=== PATIENT | female | born 1930 | race Caucasian/White ===

== ENCOUNTER 2016-07-11 08:14 | Emergency (ER) | payer MEDICARE ==
[2016-07-11 08:31] VITALS: BP 144/75
--- NOTE | 2016-07-11 08:42 | UC ---
Hand/Wrist HPI - HPI Summary HPI Summary: 85 YO FEMALE WITH THE ONSET OF RIGHT WRIST PAIN X 2 DAYS NO INJURY A FEW DAYS PRIOR TO PAIN SHE WAS LIFTING BAGS OF GROCERIES - History Of Current Complaint Chief Complaint: UCUpperExtremity Stated Complaint: WRIST INJURY Time Seen by Provider: 07/11/16 08:36 Hx Obtained From: Patient Onset/Duration: Gradual Onset, Lasting Days Severity Initially: Moderate Severity Currently: Moderate Pain Intensity: 4 Pain Scale Used: 0-10 Numeric Character Of Pain: Dull, Aching Aggravating Factor(s): Movement Alleviating: Rest Associated Signs And Symptoms: Positive: Swelling Related History: Dominant Hand Right - Allergies/Home Medications Allergies/Adverse Reactions: Allergies Allergy/AdvReac Type Severity Reaction Status Date / Time No Known Allergies Allergy Verified 07/11/16 08:26 Home Medications: Home Medications Areds 2 07/11/16 [History] Levothyroxine TAB* [Synthroid 25 MCG TAB*] 1 tab PO DAILY 07/11/16 [History Confirmed 07/11/16] Metoprolol Tartrate TAB* [Lopressor TAB*] 07/11/16 [History] PMH/Surg Hx/FS Hx/Imm Hx Previously Healthy: Yes Endocrine History Of: Reports: Thyroid Disease - HYPOTHYROIDISM Denies: Diabetes Cardiovascular History Of: Reports: Hypertension Denies: Cardiac Disorders, Pacemaker/ICD Respiratory History Of: Denies: COPD, Asthma GI/ History Of: Denies: Ulcer, Renal Disease - Surgical History Surgical History: Yes Surgery Procedure, Year, and Place: 1978 COMPLETE HYSTERECTOMY [place]. BILATERAL CATARACTS - Family History Known Family History: Positive: Hypertension - Social History Alcohol Use: Daily Alcohol Amount: One glass daily Substance Use Type: None Smoking Status (MU): Never Smoked Tobacco Have You Smoked in the Last Year: No Review of Systems Constitutional: Negative Skin: Negative Eyes: Negative ENT: Negative Respiratory: Negative Cardiovascular: Negative Gastrointestinal: Negative Genitourinary: Negative Motor: Negative Neurovascular: Negative Musculoskeletal: Arthralgia Neurological: Negative Psychological: Negative All Other Systems Reviewed And Are Negative: Yes Physical Exam Triage Information Reviewed: Yes Appearance: Well-Appearing, No Pain Distress, Well-Nourished Vital Signs: Initial Vital Signs Temp 97.4 F 07/11/16 08:29 Pulse 85 07/11/16 08:29 Resp 16 07/11/16 08:29 BP 144/75 07/11/16 08:29 Pulse Ox 99 07/11/16 08:29 Eyes: Positive: Conjunctiva Clear ENT: Positive: Hearing grossly normal. Negative: Nasal congestion, Nasal drainage, Trismus, Muffled/hoarse voice Neck: Positive: Supple, Nontender Respiratory: Positive: Lungs clear, Normal breath sounds, No respiratory distress, No accessory muscle use Cardiovascular: Positive: RRR, No Murmur Musculoskeletal: Positive: ROM Intact, Edema @, Other: - SEE IMAGE Neurological: Positive: Alert Psychological Exam: Normal Skin Exam: Normal Hand/Wrist Course/Dx - Differential Dx/Diagnosis Provider Diagnoses: RIGHT WRIST TENDONITS/ARTHRITIS Discharge - Discharge Plan Condition: Stable Disposition: HOME Prescriptions: Meloxicam [Mobic] 7.5 - 15 mg PO DAILY PRN #20 tab PRN Reason: Pain Patient Education Materials: Tendinitis (ED) Referrals: Sarah Beth Walker MD [Primary Care Provider] - 5 Days (RECHECK IN 5-10 DAYS IF NOT BETTER) Additional Instructions: WARM SOAKS WITH RANGE OF MOTION 4X DAY MASSAGE ACROSS PAINFUL AREA AFTER SOAKS YOU CAN TAKE TYLENOL WELL THE MOBIC FOR PAIN Images Hands: 1 - TENDER/SWOLLEN
--- NOTE | 2016-07-11 09:11 | RAD ---
INDICATION: 2 days RIGHT wrist pain; possible lifting injury. COMPARISON: None. TECHNIQUE: AP, lateral, and oblique views RIGHT wrist. REPORT: Bone density appears decreased throughout. Negative for fracture or articular malalignment. Advanced osteophytosis, joint space narrowing, subchondral sclerosis, and probable loose bodies at the trapezium first metacarpal articulation and mildly less marked osteoarthritis at the scaphoid trapezium trapezoid articulation. Mild nonfocal soft tissue swelling. IMPRESSION: Negative for fracture or malalignment. 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
== END 2016-07-11 09:08 | disposition home or self-care (01) ==
LOC: UCEAST 08:14
DX: M77.9 Enthesopathy, unspecified (principal); M19.031 Primary osteoarthritis, right wrist; I10 Essential (primary) hypertension; E03.9 Hypothyroidism, unspecified
CPT/HCPCS: 99212; G0463

== ENCOUNTER 2017-02-05 22:37 | Emergency (ER) | payer MEDICARE ==
[2017-02-05] MEDS ORDERED: NS 0.9% 1000 ML* 1,000 ML IV ONE (23:50)
[2017-02-05] MEDS ORDERED: Ondansetron INJ* 2 MG/ML VIAL IV ONE (23:50)
[2017-02-05] MEDS ORDERED: Morphine INJ* 4 MG/ML 1 ML CARPUJECT IV ONE (23:50)
[2017-02-06 01:20] LABS: Hematocrit 43 % (35-47); Hemoglobin 14.5 g/dl (12.0-16.0); Mean Corpuscular HGB Conc 34 g/dl (31-36); Mean Corpuscular Hemoglobin 31 pg (27-31); Mean Corpuscular Volume 92 fL (80-97); Mean Platelet Volume 8 um3 (7.4-10.4); Red Blood Count 4.66 10^6/ul (4.0-5.4); Red Cell Distribution Width 13 % (10.5-15); White Blood Count 11.3 10^3/ul (3.5-10.8)
[2017-02-06 01:31] LABS: Albumin 3.7 g/dL (3.2-5.2); BUN/Creatinine Ratio 18.8 (8-20); C Reactive Protein 14.78 mg/L (< 5.00); Calcium 8.9 mg/dL (8.6-10.3); EGFR African American 104.2 (>60); EGFR Non-African American 81.1 (>60); Globulin 2.4 g/dL (2-4); Potassium 3.7 mmol/L (3.5-5.0); Total Bilirubin 0.6 mg/dL (0.2-1.0); Total Protein 6.1 g/dL (6.4-8.9)
[2017-02-06] MEDS ORDERED: Iohexol 300* (CONTRAST) 10 ML SDV IV ONE (01:59)
[2017-02-06] MEDS ORDERED: Morphine INJ* 4 MG/ML 1 ML CARPUJECT IV ONE (02:20)
[2017-02-06] MEDS ORDERED: Ondansetron INJ* 2 MG/ML VIAL IV ONE (02:20)
[2017-02-06 02:22] LABS: Urine Bilirubin Negative (Negative); Urine Glucose Negative (Negative); Urine Nitrite Negative (Negative)
[2017-02-06] MEDS ORDERED: metroNIDAZOLE TAB* 250 MG PO ONE (04:45)
[2017-02-06] MEDS ORDERED: traMADol TAB* 50 MG PO ONE (04:45)
[2017-02-06] MEDS ORDERED: Ciprofloxacin TAB* 500 MG PO ONE (04:45)
[2017-02-06] MEDS ORDERED: Ondansetron ODT TAB* 4 MG PO ONE (04:50)
[2017-02-06 05:09] VITALS: BP 136/87
--- NOTE | 2017-02-06 06:13 | ED ---
Jesusita Henderson Rebecca, scribed for Adam Brown MD on 02/06/17 at 0023 . Abdominal Pain/Female - HPI Summary HPI Summary: 86 y/o F pt presents to [facility] with bilateral lower abdomen pain that started this morning at 0900. The patient says the pain is 10/10 in severity, constant, and waxes and wanes in intensity. She reports nausea and constipation and denies fevers, chills, dysuria, hematuria, SOB, loss of appetite. Symptoms are alleviated by nothing and are aggravated by nothing. Patients last BM was over 2 days ago which she reports is somewhat typical, and reports difficulty with BM. - History of Current Complaint Chief Complaint: EDAbdPain Stated Complaint: ABD PAIN Time Seen by Provider: 02/05/17 23:41 Hx Obtained From: Patient Onset/Duration: Lasting Hours - started 0900 Severity Currently: Severe - 10/10 Pain Scale Used: 0-10 Numeric - 10/10 Location: Discrete At: RLQ, Discrete At: LLQ Character: Other: - aching Aggravating Factor(s): Nothing Alleviating Factor(s): Nothing Associated Signs and Symptoms: Positive: Nausea, Other: - Constipation Allergies/Adverse Reactions: Allergies Allergy/AdvReac Type Severity Reaction Status Date / Time No Known Allergies Allergy Verified 02/05/17 22:43 PMH/Surg Hx/FS Hx/Imm Hx Endocrine/Hematology History: Reports: Hx Thyroid Disease - HYPOTHYROIDISM Denies: Hx Diabetes Cardiovascular History: Reports: Hx Hypertension, 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 BILATERAL CATARACTS Hx Anesthesia Reactions: No Infectious Disease History: No Infectious Disease History: Denies: Hx Clostridium Difficile, Hx Hepatitis, Hx Human Immunodeficiency Virus (HIV), Hx of Known/Suspected MRSA, Hx Shingles, Hx Tuberculosis, Hx Known/ Suspected VRE, Hx Known/Suspected VRSA, History Other Infectious Disease, Traveled Outside the [place] in Last 30 Days - Family History Known Family History: Positive: Hypertension - Social History Alcohol Use: Daily Alcohol Amount: One glass daily Substance Use Type: Reports: None Smoking Status (MU): Never Smoked Tobacco Have You Smoked in the Last Year: No Review of Systems Negative: Fever, Chills Negative: Shortness Of Breath Positive: Abdominal Pain, Nausea, Other - Constipation Negative: dysuria, hematuria All Other Systems Reviewed And Are Negative: Yes Physical Exam - Summary Physical Exam Summary: General: well-appearing, mild pain distress Skin: warm, color reflects adequate perfusion, dry Head: normal Eyes: EOMI, THANH ENT: normal Neck: supple, nontender Respiratory: CTA, breath sounds present Cardiovascular: RRR Abdomen: soft, diffusely tender, worse in the RLQ and periumbilical regions Bowel: hypoactive Musculoskeletal: normal, strength/ROM intact Neurological: normal, sensory/motor intact, A&O x3 Psychological: affect/mood appropriate Triage Information Reviewed: Yes Vital Signs On Initial Exam: Initial Vitals Temp Pulse Resp BP Pulse Ox 97.4 F 75 14 147/82 100 02/05/17 22:40 02/05/17 22:40 02/05/17 22:40 02/05/17 22:40 02/05/17 22:40 Vital Signs Reviewed: Yes - [place] Coma Scale Coma Scale Total: 15 Diagnostics - Vital Signs Vital Signs Temp Pulse Resp BP Pulse Ox 02/05/17 22:40 97.4 F 75 14 147/82 100 - Laboratory Lab Results: Lab Results 02/06/17 02/06/17 02/06/17 Range/Units 00:01 00:01 00:01 WBC 11.3 H (3.5-10.8) 10^3/ul RBC 4.66 (4.0-5.4) 10^6/ul Hgb 14.5 (12.0-16.0) g/dl Hct 43 (35-47) % MCV 92 (80-97) fL MCH 31 (27-31) pg MCHC 34 (31-36) g/dl RDW 13 (10.5-15) % Plt Count 226 (150-450) 10^3/ul MPV 8 (7.4-10.4) um3 Neut % (Auto) 92.3 H (38-83) % Lymph % (Auto) 5.4 L (25-47) % [place] % (Auto) 1.2 (1-9) % Eos % (Auto) 0.4 (0-6) % Baso % (Auto) 0.7 (0-2) % Absolute Neuts (auto) 10.5 H (1.5-7.7) 10^3/ul Absolute Lymphs (auto) 0.6 L (1.0-4.8) 10^3/ul Absolute Monos (auto) 0.1 (0-0.8) 10^3/ul Absolute Eos (auto) 0 (0-0.6) 10^3/ul Absolute Basos (auto) 0.1 (0-0.2) 10^3/ul Absolute Nucleated RBC 0.01 10^3/ul Nucleated RBC % 0.1 INR (Anticoag Therapy) 0.79 L (0.89-1.11) APTT 24.5 L (26.0-36.3) seconds Sodium 132 L (133-145) mmol/L Potassium 3.7 (3.5-5.0) mmol/L Chloride 100 L (101-111) mmol/L Carbon Dioxide 23 (22-32) mmol/L Anion Gap 9 (2-11) mmol/L BUN 13 (6-24) mg/dL Creatinine 0.69 (0.51-0.95) mg/dL Est GFR ( Amer) 104.2 (>60) Est GFR (Non-Af Amer) 81.1 (>60) BUN/Creatinine Ratio 18.8 (8-20) Glucose 130 H (70-100) mg/dL Lactic Acid (0.5-2.0) mmol/L Calcium 8.9 (8.6-10.3) mg/dL Total Bilirubin 0.60 (0.2-1.0) mg/dL AST 16 (13-39) U/L ALT 10 (7-52) U/L Alkaline Phosphatase 72 (34-104) U/L C-Reactive Protein 14.78 H (< 5.00) mg/L Total Protein 6.1 L (6.4-8.9) g/dL Albumin 3.7 (3.2-5.2) g/dL Globulin 2.4 (2-4) g/dL Albumin/Globulin Ratio 1.5 (1-3) Urine Color Urine Appearance Urine pH (5-9) Ur Specific [place] (1.010-1.030) Urine Protein (Negative) Urine Ketones (Negative) Urine Blood (Negative) Urine Nitrate (Negative) Urine Bilirubin (Negative) Urine Urobilinogen (Negative) Ur Leukocyte Esterase (Negative) Urine Glucose (Negative) 02/06/17 02/06/17 Range/Units 00:01 01:45 WBC (3.5-10.8) 10^3/ul RBC (4.0-5.4) 10^6/ul Hgb (12.0-16.0) g/dl Hct (35-47) % MCV (80-97) fL MCH (27-31) pg MCHC (31-36) g/dl RDW (10.5-15) % Plt Count (150-450) 10^3/ul MPV (7.4-10.4) um3 Neut % (Auto) (38-83) % Lymph % (Auto) (25-47) % [place] % (Auto) (1-9) % Eos % (Auto) (0-6) % Baso % (Auto) (0-2) % Absolute Neuts (auto) (1.5-7.7) 10^3/ul Absolute Lymphs (auto) (1.0-4.8) 10^3/ul Absolute Monos (auto) (0-0.8) 10^3/ul Absolute Eos (auto) (0-0.6) 10^3/ul Absolute Basos (auto) (0-0.2) 10^3/ul Absolute Nucleated RBC 10^3/ul Nucleated RBC % INR (Anticoag Therapy) (0.89-1.11) APTT (26.0-36.3) seconds Sodium (133-145) mmol/L Potassium (3.5-5.0) mmol/L Chloride (101-111) mmol/L Carbon Dioxide (22-32) mmol/L Anion Gap (2-11) mmol/L BUN (6-24) mg/dL Creatinine (0.51-0.95) mg/dL Est GFR ( Amer) (>60) Est GFR (Non-Af Amer) (>60) BUN/Creatinine Ratio (8-20) Glucose (70-100) mg/dL Lactic Acid 0.8 (0.5-2.0) mmol/L Calcium (8.6-10.3) mg/dL Total Bilirubin (0.2-1.0) mg/dL AST (13-39) U/L ALT (7-52) U/L Alkaline Phosphatase (34-104) U/L C-Reactive Protein (< 5.00) mg/L Total Protein (6.4-8.9) g/dL Albumin (3.2-5.2) g/dL Globulin (2-4) g/dL Albumin/Globulin Ratio (1-3) Urine Color Yellow Urine Appearance Clear Urine pH 7.0 (5-9) Ur Specific [place] 1.009 L (1.010-1.030) Urine Protein Negative (Negative) Urine Ketones 1+ H (Negative) Urine Blood Negative (Negative) Urine Nitrate Negative (Negative) Urine Bilirubin Negative (Negative) Urine Urobilinogen Negative (Negative) Ur Leukocyte Esterase Negative (Negative) Urine Glucose Negative (Negative) Result Diagrams: 02/06/17 00:01 02/06/17 00:01 Lab Statement: Any lab studies that have been ordered have been reviewed, and results considered in the medical decision making process. - CT Abdomen and pelvis CT Interpretation: Positive (See Comments) - colitis with possible colonic ileus. No abscess, free air or bowel obstruction. CT Interpretation Completed By: Radiologist Re-Evaluation - Re-Evaluation First Eval Re-Evaluation Time: 23:52 Change: Improved Comment: Minimal tenderness to palpation of the RLQ Second Eval Re-Evaluation Time: 04:28 Change: Worse - Pain is returning and she would like to go home. Abdominal Pain Fem Course/Dx - Course Course Of Treatment: DISCUSSED RESULTS WITH PATIENT/. DISCUSSED ADMISSION; SHE DECLINED ADMISSION AT THIS TIME. F/U PMD; RETURN IF WORSE. NO CRITICAL CARE TIME. - Diagnoses Provider Diagnoses: Colitis Discharge - Discharge Plan Condition: Stable Disposition: HOME Prescriptions: Ciprofloxacin TAB* [Cipro 500 MG TAB*] 500 mg PO BID #19 tab Metronidazole [Flagyl 500 MG TAB] 500 mg PO TID #29 tab Ondansetron ODT TAB* [Zofran 4 MG Odt TAB*] 4 mg PO Q6H PRN #10 tab.odt PRN Reason: Nausea traMADol TAB* [Ultram*] 50 mg PO Q6HR PRN #15 tab MDD 4 PRN Reason: Pain Patient Education Materials: Colitis (ED) Referrals: Sarah Beth Walker MD [Primary Care Provider] - Additional Instructions: FOLLOW UP WITH YOUR DOCTOR TOMORROW, 02/07/17. RETURN TO THE EMERGENCY DEPARTMENT FOR ANY WORSENING OF YOUR CONDITION; PAIN, FEVER, YOU FEEL ILL OR QUESTIONS OR CONCERNS. The documentation as recorded by the Jesusita gordillo Rebecca accurately reflects the service I personally performed and the decisions made by me, Adam Brown MD.
--- NOTE | 2017-02-06 08:22 | RAD ---
INDICATION: Lower abdominal pain. COMPARISON: There are no prior studies available for comparison. TECHNIQUE: A CT scan of the abdomen and pelvis was performed with intravenous and oral contrast following intravenous injection of 69 ml of Omnipaque 300 nonionic contrast. Contiguous axial sections were obtained from the lung bases through the symphysis pubis. Images were reconstructed in the coronal and sagittal planes. FINDINGS: The lung bases are clear. No pleural effusion is present. The liver and spleen are within normal limits in size without significant focal abnormality. No calcified gallstones are seen. The pancreas appears to be within normal limits in size. The kidneys and adrenal glands are normal in size. No hydronephrosis is seen. No significant focal renal abnormality is seen. The aorta is normal in caliber with moderate calcific plaque present. There are couple mildly prominent retroperitoneal lymph nodes in the left periaortic region measuring up to 1 cm in transverse dimension. The stomach and small bowel are nondistended. There is mild diffuse distention of the colon which is fluid-filled. There is stranding in the fat adjacent to the descending colon suggestive colitis. The appendix is not visualized. There is sigmoid diverticulosis moderate in degree without evidence for diverticulitis. The patient is status post hysterectomy. No free intraperitoneal air or fluid is seen. No significant focal osseous abnormality is seen. IMPRESSION: FINDINGS SUGGESTIVE OF COLITIS WITH POSSIBLE COLONIC ILEUS. NO EVIDENCE FOR ABSCESS OR FREE AIR.
== END 2017-02-06 05:14 | disposition home or self-care (01) ==
LOC: ED 22:37
DX: K52.9 Noninfective gastroenteritis and colitis, unspecified (principal); R10.30 Lower abdominal pain, unspecified; R11.0 Nausea; K59.00 Constipation, unspecified
CPT/HCPCS: 36415; 74177; 80053; 81003; 83605; 85025; 85610; 85730; 86140; 99284; A9270-GY; J2270; J2405; Q9967